=== PATIENT | female | born 1960 | race Caucasian/White ===

== ENCOUNTER 2017-05-06 12:40 | Emergency (ER) | payer OTHER ==
[2017-05-06 13:11] VITALS: BP 131/84
--- NOTE | 2017-05-06 13:32 | UC ---
Lower Extremity/Ankle HPI - HPI Summary HPI Summary: A little over a week ago pt pulled tick out of the back of L knee. Has been watching the area, and noticed it got an itchy bump yesterday and today is a long, oval red area that is a little tender. Denies fever, CALIX[place], or joint pain. - History of Current Complaint Chief Complaint: UCSkin Stated Complaint: TICK BITE Time Seen by Provider: 05/06/17 13:14 Hx Obtained From: Patient ?: No Onset/Duration: Gradual Onset Severity Initially: Mild Severity Currently: Mild Aggravating Factor(s): Nothing Able to Bear Weight: Yes - Allergies/Home Medications Allergies/Adverse Reactions: Allergies Allergy/AdvReac Type Severity Reaction Status Date / Time No Known Allergies Allergy Verified 03/23/16 11:47 PMH/Surg Hx/FS Hx/Imm Hx Previously Healthy: Yes - Surgical History Surgical History: Yes Surgery Procedure, Year, and Place: patent ductus, closed artial hole at age 6 - Family History Known Family History: Positive: None - Social History Occupation: Employed Full-time Lives: Alone Alcohol Use: Weekly Substance Use Type: None Smoking Status (MU): Never Smoked Tobacco Review of Systems Constitutional: Negative Skin: Rash - L posterior knee Eyes: Negative ENT: Negative Respiratory: Negative Cardiovascular: Negative Gastrointestinal: Negative Genitourinary: Negative Motor: Negative Neurovascular: Negative Musculoskeletal: Negative Neurological: Negative Psychological: Negative All Other Systems Reviewed And Are Negative: Yes Physical Exam Triage Information Reviewed: Yes Appearance: Well-Appearing, No Pain Distress, Well-Nourished Vital Signs: Initial Vital Signs Temp 98.3 F 05/06/17 13:08 Pulse 76 05/06/17 13:08 Resp 18 05/06/17 13:08 BP 131/84 05/06/17 13:08 Pulse Ox 99 05/06/17 13:08 Vital Signs Reviewed: Yes Eye Exam: Normal, Other - PERRL Eyes: Positive: Conjunctiva Clear ENT Exam: Normal ENT: Positive: Normal ENT inspection, Hearing grossly normal, Pharynx normal, TMs normal Dental Exam: Normal Neck exam: Normal Neck: Positive: Supple, Nontender, No Lymphadenopathy Respiratory Exam: Normal Respiratory: Positive: Chest non-tender, Lungs clear, Normal breath sounds, No respiratory distress, No accessory muscle use Cardiovascular Exam: Normal Cardiovascular: Positive: RRR, No Murmur Musculoskeletal Exam: Normal Musculoskeletal: Positive: Strength Intact, ROM Intact Neurological Exam: Normal Neurological: Positive: Alert Psychological Exam: Normal Skin Exam: Other - red oval on posterior L knee 10cm wide by 4cm tall, slightly tender. No streaking, abscess formation, or drainage. Lower Extremity Course/Dx - Differential Dx/Diagnosis Provider Diagnoses: early localized Lyme disease. elevated blood pressure due to discomfort Discharge - Discharge Plan Condition: Stable Disposition: HOME Prescriptions: DOXYcycline CAP(*) [DOXYcycline 100MG CAP(*)] 100 mg PO BID #28 cap Patient Education Materials: Lyme Disease (ED) Referrals: Nimisha Jensen MD [Medical Doctor] - Additional Instructions: As we discussed, the medicine will make you very sensitive to the sun. Make sure you cover your skin with clothing and hats as well as sunscreen if you need to spend time outside. If your symptoms persist or worsen over the next 3-4 days, especially if you develop fever or growing red spot, make sure you are seen again with a primary care or urgent care provider.
== END 2017-05-06 13:32 | disposition home or self-care (01) ==
LOC: UCEAST 12:40
DX: A69.20 Lyme disease, unspecified (principal); R03.0 Elevated blood-pressure reading, without diagnosis of hypertension
CPT/HCPCS: 99212; G0463

== ENCOUNTER 2018-08-20 11:20 | Emergency (ER) | payer OTHER ==
--- OUTSIDE RECORDS SUMMARY | 2018-08-20 11:25 | XMS REPORT ---
:1960 Author Organization [facility] Address [address] [place] [address] Care Team Providers Name Role Phone Sandra Meneses Unavailable Unavailable PROBLEMS Type Condition ICD9-CM [id number] Onset Condition SNOMED Code Code Code Dates Status Problem Unspecified R32 Active 995814305 urinary incontinence Problem Benign endometrial N85.01 Active 711280566256441 hyperplasia Problem Leiomyoma of D25.9 Active 48921041 uterus, unspecified Problem Polyp of corpus N84.0 Active 76147789 uteri Problem Menopausal and N95.1 Active 441097354 female climacteric states Problem Postmenopausal N95.2 Active 05102963 atrophic vaginitis Problem Sexual R37 Active 07141725 dysfunction, unspecified 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 Aug, [place]BG[place], [place] [id number] [facility] Aug, [place]BG[place] [id number] [facility] Jul, Acute vaginitis N76.0 and OBGYN [facility], Menopausal and female [place] [id number] climacteric states N95.[address] [facility] Apr, [place]BG[place] [id number] [facility] Apr, Menopausal and female OBGYN [facility], climacteric states N95.1 ; [place] [id number] Leiomyoma of uterus, unspecified D25.9 ; Abnormal findings on diagnostic imaging of other specified body structures R93.8 and Noninflammatory disorder of vagina, unspecified N89.9 [place] [facility] Apr, Leiomyoma of uterus, OBGYN [facility], unspecified D25.9 and [place] [id number] Abnormal findings on diagnostic imaging of other specified body structures R93.8 [place] [facility] Apr, Menopausal and female OBG[facility], climacteric states N95.1 [place] [id number] [place] [facility] 103 Dec, [facility]oma of uterus, [facility], unspecified D25.9 ; [place] [id number] Abnormal findings on diagnostic imaging of other specified body structures R93.8 ; Postmenopausal atrophic vaginitis N95.2 ; Acute vaginitis N76.0 and Menopausal and female climacteric states N95.1 [place] [facility] 103 Dec, [facility] of [facility], [facility], unspecified D25.9 and [place] [id number] Benign endometrial hyperplasia N85.01 [place] [facility] Dec, OBGYN [place] [id number] [place] [facility] 103 Nov, OBGYN [place], [place] [id number] [place] [facility] 103 Sep, [place] [id number] [place] [facility] Sep, [place] [id number] [place] [facility] 103 Sep, [facility]oma of uterus, [facility], unspecified D25.9 ; Acute [place] [id number] vaginitis N76.0 and Abnormal findings on diagnostic imaging of other specified body structures R93.[address] [facility] Sep, Leiomyoma of uterus, [facility], unspecified D25.9 and [place] [id number] Benign endometrial hyperplasia N85.01 [facility] Sep, [place]BG[place] [id number] [facility] Sep, OBG[place] [id number] [facility] Aug, [place]BG[place] [id number] [facility] Aug, Encounter for [address] [place], gynecological examination [place] [id number] (general) (routine) with abnormal findings Z01.411 ; Leiomyoma of uterus, unspecified D25.9 ; Encounter for screening for malignant neoplasm of cervix Z12.4 ; Encounter for screening mammogram for malignant neoplasm of breast Z12.31 ; Encounter for screening for malignant neoplasm of colon Z12.11 ; Sexual dysfunction, unspecified R37 and Herpesviral infection of urogenital system, unspecified A60.[address] [facility] Aug, [facility] urogenital system, [place] [id number] unspecified A60.00 [facility] Feb, [place] [id number] [facility] Apr, OBGYN [place] [id number] [place] [facility] Apr, [facility]ign [facility], hyperplasia N85.01 ; [place] [id number] Leiomyoma of uterus, unspecified D25.9 ; Other specified noninflammatory disorders of vagina N89.8 and Acute vulvitis N76.2 [place] [facility] Apr, Leiomyoma of uterus, OBGYN [facility], unspecified D25.9 [place] [id number] [facility] March, [place] [id number] [address] March, Encounter for OBG[address] [place], gynecological examination [place] [id number] (general) (routine) without abnormal findings Z01.419 ; Benign endometrial hyperplasia N85.01 ; Encounter for screening mammogram for malignant neoplasm of breast Z12.31 ; Leiomyoma of uterus, unspecified D25.9 ; Encounter for screening for malignant neoplasm of colon Z12.11 ; Unspecified urinary incontinence R32 ; Other specified noninflammatory disorders of vagina N89.8 ; Herpesviral infection of urogenital system, unspecified A60.00 and Menopausal and female climacteric states N95.1 [facility] March, [place], [place] [id number] [facility] Aug, [facility]ign [facility], hyperplasia N85.01 ; [place] [id number] Leiomyoma of uterus, unspecified D25.9 ; Unspecified urinary incontinence R32 ; Body mass index (BMI) 27.0-27.9, adult Z68.27 and Polyp of corpus uteri N84.0 [facility] May, Simple endometrial [facility], hyperplasia without [place] [id number] atypical cells 621.31 ; Leiomyoma of uterus, unspecified 218.9 ; Endometrial polyp 621.0 and Incontinence 788.30 [facility] May, [facility]omyoma of uterus, [facility], unspecified 218.9 [place] [id number] [facility] [address] [place], Apr, Medical [place] [id number] [address] Apr, PELVIC PAIN [address] [place], [place] [id number] [facility] March, [place] [id number] [facility] March, OBGYN [place] [id number] [facility] March, Simple endometrial OBGYN [address] [place], hyperplasia without [place] [id number] atypical cells 621.31 ; Leiomyoma of uterus, unspecified 218.9 ; Endometrial polyp 621.0 and Incontinence 788.[address] [facility] March, Simple endometrial [address]BGYN [address] [place], hyperplasia without [place] [id number] atypical cells 621.31 [place] [facility] 103 March, Simple endometrial OBG[facility], hyperplasia without [place] [id number] atypical cells 621.31 [place] [facility] March, Simple endometrial OBGYN [facility], hyperplasia without [place] [id number] atypical cells 621.31 and Leiomyoma of uterus, unspecified 218.[address] [facility] March, OBGYN [place], [place] [id number] [place] [facility] Feb, OBG[place] [id number] [place] [facility] Feb, PELVIC PAIN 625.9 [place] [id number] [facility] Feb, ROUTINE CONTINUOUS PROCESS COFFEE ROASTER EXAMINATION OBN [address] [place] [address], V72.31 ; SCREEN MALIG [place] [id number] NEOP-COLON V76.51 ; SCREEN MAMMOGRAM NEC V76.12 ; PELVIC PAIN 625.9 ; Simple endometrial hyperplasia without atypical cells 621.31 and Incontinence 788.[address] Apr, PELVIC PAIN 625.9 ; ABN [address]YN [address] [place] [address], FINDINGS- ORGANS 793.5 ; [place] [id number] Incontinence 788.30 and Simple endometrial hyperplasia without atypical cells 621.31 [facility] Apr, OBGYN [place] [id number] [facility] [address] [place], Apr, Medical [place] [id number] [place] [facility] 103 March, Cervical polyp 622.7 OBGYN [place] [id number] [facility] March, OBG[place] [id number] [place] [facility] March, PELVIC PAIN 625.9 ; ABN OBGYN [facility], FINDINGS- ORGANS 793.5 [place] [id number] and Incontinence 788.30 [place] [facility] March, PELVIC PAIN 625.9 ; ABN OBGYN [facility], FINDINGS- ORGANS 793.5 [place] [id number] and Cervical polyp 622.7 [place] [facility] 103 March, ROUTINE CONTINUOUS PROCESS COFFEE ROASTER EXAMINATION OBN [facility], V72.31 ; PAP SMEAR W/O CONTINUOUS PROCESS COFFEE ROASTER [place] [id number] EXAM V76.2 ; SCREEN MALIG NEOP-COLON V76.51 ; SCREEN MAMMOGRAM NEC V76.12 ; PELVIC PAIN 625.9 and ABN FINDINGS- ORGANS 793.5 IMMUNIZATIONS No Known Immunizations SOCIAL HISTORY Never Assessed REASON FOR REFERRAL FUNCTIONAL STATUS PLAN OF CARE VITAL SIGNS MEDICATIONS Medication Instructions Dosage Frequency Start End Date Duration Status Date Prometrium 100 orally once a day 1 capsule Dec, days Active mg (at bedtime) 2018 MetroGel-Vagin intravaginally 1 appful Dec, days Active al 0.75% twice a week (at 2017 bedtime) Estradiol applied topically 1 patch Dec, days Active Patch 0.05 2 times a week 2018 mg/24 hours twice weekly PROCEDURES No Known procedures RESULTS No Results REASON FOR VISIT refills Insurance Providers [facility] Health Member Patient Patient Patient Patient Patient Subscriber Subscriber Subscriber Group Insurance Plan Plan Plan Plan ID Relationship Address Phone Name Date of ID Name Date of No Type Insurance Insurance Insurance Coverage to Subscriber Address Phone Name Dates [phone] Emily self Prabha [id number] [place] [address] [place] [phone] [employer] [phone] [employer] self Prabha [id number] Blue [id number] [address] [place] 1939 Cross[place] Cross/Blue Shield [id number] Shield MEDICAL (GENERAL) HISTORY Type Description Date Surgical History open heart surgery 1966 Surgical History hysteroscopy, excision of EC 04/18/13 Surgical History hysteroscopy, D&C 05/07/15 Hospitalization History see above Hospitalization History childbirth
[2018-08-20 11:53] VITALS: BP 148/95
--- NOTE | 2018-08-20 12:18 | UC ---
Shoulder Pain HPI - HPI Summary HPI Summary: The patient is a 58-year-old female that 3 days ago developed what she thought was a pulled muscle in her left rhomboid region. Soon after the pain developed here she began experiencing sharp pains extending from her shoulder down into her hand. The pain near the left shoulder blade has since disappeared. She has been taking ibuprofen without relief. The pain keeps her up at night. The pain is worse when she rolls onto her left or right shoulder. The pain is forced her to sleep on her back. She has no chest pain or shortness of breath. - History of Current Complaint Chief Complaint: UCUpperExtremity Stated Complaint: L ARM PAIN Time Seen by Provider: 08/20/18 11:46 Hx Obtained From: Patient Onset/Duration: Sudden Onset Timing: Constant Severity Initially: Moderate Severity Currently: Moderate Pain Intensity: 4 Pain Scale Used: 0-10 Numeric Character: Throbbing, Spasmodic Aggravating Factor(s): Nothing Alleviating Factor(s): Nothing Associated Signs And Symptoms: Positive: Negative - Allergies/Home Medications Allergies/Adverse Reactions: Allergies Allergy/AdvReac Type Severity Reaction Status Date / Time codeine AdvReac Severe Vomiting Verified 08/20/18 11:46 Home Medications: Home Medications Estrogens, Conjugated [Premarin] 0.3 mg PO DAILY 08/20/18 [History Confirmed 05/02] Ibuprofen TAB* [Motrin TAB* 600 MG] 600 mg PO Q6H PRN 08/20/18 [History Confirmed 08/20/18] Progesterone, Micronized [Progesterone] 100 mg PO WEEKLY 08/20/18 [History Confirmed 08/20/18] PMH/Surg Hx/FS Hx/Imm Hx Previously Healthy: Yes Other Cardiovascular History: congenital heart disease -ASD repair - Surgical History Surgical History: Yes Surgery Procedure, Year, and Place: patent ductus, closed artial hole at age 6 - Family History Known Family History: Positive: Hypertension - Social History Alcohol Use: Occasionally Substance Use Type: None Smoking Status (MU): Never Smoked Tobacco Review of Systems Constitutional: Negative Skin: Negative Eyes: Negative ENT: Negative Respiratory: Negative Cardiovascular: Negative Gastrointestinal: Negative Genitourinary: Negative Motor: Negative Neurovascular: Negative Musculoskeletal: Arthralgia, Myalgia Neurological: Negative Psychological: Negative All Other Systems Reviewed And Are Negative: Yes Physical Exam Triage Information Reviewed: Yes Appearance: Well-Appearing, No Pain Distress, Well-Nourished Vital Signs: Initial Vital Signs Temp 98.3 F 08/20/18 11:49 Pulse 92 08/20/18 11:49 Resp 20 08/20/18 11:49 BP 148/95 08/20/18 11:49 Pulse Ox 100 08/20/18 11:49 Vital Signs Reviewed: Yes ENT: Positive: Hearing grossly normal. Negative: Nasal congestion, Nasal drainage, Tonsillar swelling, Tonsillar exudate, Dental tenderness, Sinus tenderness Neck: Positive: Tenderness @ - left trap, Other: - limited ROM Respiratory: Positive: Lungs clear, Normal breath sounds, No respiratory distress Cardiovascular: Positive: RRR, No Murmur. Negative: Tachycardia Musculoskeletal: Positive: Strength Intact, ROM Intact, No Edema Neurological Exam: Normal Neurological: Positive: Alert, Muscle Tone Normal, Other: - strenght 5/5, sensory intact Psychological Exam: Normal Skin Exam: Normal Diagnostics - Radiology No standard instances Xray Interpretation: Positive (See Comments) - Degenerative spondylosis most prominent at C5-C6 moderate in severity Radiology Interpretation Completed By: Radiologist Shoulder Course/Dx - Differential Dx/Diagnosis Provider Diagnoses: DDD. cervical spasm. left radiculopathy Discharge - Sign-Out/Discharge Documenting (check all that apply): Patient Departure All imaging exams completed and their final reports reviewed: Yes - Discharge Plan Condition: Stable Disposition: HOME Prescriptions: Cyclobenzaprine TAB* [Flexeril TAB*] 5 mg PO TID PRN #12 tab PRN Reason: Spasms Naproxen Sodium [Naproxen Sodium 500 MG TAB] 500 mg PO BID PRN #30 tab PRN Reason: Pain Patient Education Materials: Soft Cervical Collar (ED), Cervical Radiculopathy (ED), Degenerative Disc Disease (ED) Referrals: [facility] RE[facility]ERRAL [Outside] - As Soon As Possible Shawn Malik MD [Medical Doctor] - 2 Weeks (if not better) - Billing Disposition and Condition Condition: STABLE Disposition: Home
[2018-08-20] MEDS ORDERED: Ketorolac INJ* 30 MG/ML 1 ML VIAL IM ONE (12:20)
--- NOTE | 2018-08-20 12:37 | RAD ---
Indication: LEFT cervical radiculopathy. Comparison: No relevant prior exams available on the [facility] PACS for comparison. Technique: AP, open-mouth odontoid, lateral, and oblique views cervical spine. Report: Negative for fracture. Straightening relative to normal cervical lordosis without facet subluxation at any level. 1.5 mm degenerative anterolisthesis at C3-C4 and C4-C5. Multilevel degenerative spondylosis most prominent at C5-C6 with moderate disc space narrowing and mild vertebral endplate osteophytosis. Mild facet joint osteoarthritis most prominent at C5-C6 and C6-C7. The oblique views are without compelling evidence for significant osseous foraminal stenosis. Unremarkable prevertebral soft tissue contours. IMPRESSION: #. Degenerative spondylosis most prominent at C5-C6 moderate in severity.
== END 2018-08-20 13:13 | disposition home or self-care (01) ==
LOC: UCEAST 11:20
DX: M50.30 Other cervical disc degeneration, unspecified cervical region (principal); S13.9XXA Sprain of joints and ligaments of unspecified parts of neck, initial encounter; X58.XXXA Exposure to other specified factors, initial encounter; Y92.9 Unspecified place or not applicable
CPT/HCPCS: 72050; 93005; 96372; 99212; G0463; J1885